=== PATIENT | male | born 1985 | race African-American/Black ===

== ENCOUNTER 2020-08-27 11:41 | Inpatient (IN) | payer OTHER ==
[2020-08-27 16:07] VITALS: BMI 31.7
[2020-08-27] MEDS ORDERED: NICOTINE POLACRILEX 2 MG GUM BUC PRN (16:29)
[2020-08-27] MEDS ORDERED: ACETAMINOPHEN 325 MG TABLET (FP) PO PRN ×2 (16:29)
[2020-08-27] MEDS ORDERED: BISMUTH SUBSALICYLATE 524 MG/30 ML UD PO PRN (16:29)
[2020-08-27] MEDS ORDERED: MAG HYDROX/AL HYDROX/SIMETH 30 ML UNIT-DOSE CUP PO PRN (16:29)
[2020-08-27] MEDS ORDERED: MAGNESIUM CITRATE 300 ML BOTTLE PO PRN (16:29)
[2020-08-27] MEDS ORDERED: ONDANSETRON *ODT* 4 MG TABLET SL PRN (16:29)
[2020-08-27] MEDS ORDERED: chlordiazePOXIDE HCL 25 MG CAPSULE PO PRN (16:29)
[2020-08-27] MEDS ORDERED: MAGNESIUM HYDROX 2400MG/30ML ORAL SUSPENSION 30 ML CUP PO PRN (16:29)
[2020-08-27] MEDS ORDERED: METHOCARBAMOL 500 MG TABLET PO PRN (16:29)
[2020-08-27] MEDS ORDERED: IBUPROFEN 400 MG TABLET (FP) PO PRN (16:29)
[2020-08-27] MEDS ORDERED: MENTHOL/PHENOL 1 EACH UD MM PRN (16:29)
[2020-08-27] MEDS: LORazepam 2 MG TABLET PO SCH ×2 (16:51→23:01)
[2020-08-27] MEDS ORDERED: chlordiazePOXIDE HCL 25 MG CAPSULE PO SCH (17:00)
[2020-08-27] MEDS ORDERED: LORazepam 1 MG TABLET ONE (21:06)
[2020-08-27] MEDS: LORazepam 1 MG TABLET PO PRN (21:09)
[2020-08-27] MEDS: THIAMINE HCL 100 MG TABLET (FP) PO SCH (23:01)
[2020-08-27] MEDS: MELATONIN 5 MG TABLETS PO SCH (23:01)
[2020-08-27] MEDS ORDERED: TUBERCULIN PPD 5 TU/0.1ML VIAL ID ONE (23:25)
[2020-08-28] MEDS: LORazepam 2 MG TABLET PO SCH ×4 (05:56→22:10)
[2020-08-28] MEDS: ELVITEG/COB/EMTRI/TENOF (GENVOYA) TABLET (NF) PO SCH (07:45)
[2020-08-28] MEDS: NICOTINE 7 MG/24 HOURS TOPICAL PATCH TD SCH (10:06)
[2020-08-28] MEDS: PRENATAL VITAMINS W/ FOLIC ACID TABLET (FP) PO SCH (10:06)
[2020-08-28] MEDS: hydrOXYzine PAMOATE 25 MG CAPSULE (FP) PO PRN (10:06)
[2020-08-28 12:39] LABS: HEMATOCRIT 39.8 % (35.4-49); HEMOGLOBIN 13.9 GM/dL (11.7-16.9); MCH 33.1 pg (25.7-33.7); MEAN CELL VOLUME 94.6 fl (80-96); MEAN PLT VOLUME 9.8 fl (7.5-11.1); PLATELET COUNT 238 K/MM3 (134-434); RDW 14.4 % (11.9-15.9); WHITE BLOOD COUNT 7.8 K/mm3 (4.0-10.0)
[2020-08-28 12:42] LABS: ALBUMIN 3.7 g/dl (3.4-5.0)
[2020-08-28 12:43] LABS: BLOOD UREA NITROGEN 9.3 mg/dL (7-18)
[2020-08-28 12:47] LABS: BILIRUBIN,TOTAL 0.8 mg/dL (0.2-1); TOT PROT 7.4 g/dl (6.4-8.2)
[2020-08-28 12:53] LABS: CREATININE 0.7 mg/dL (0.55-1.3)
[2020-08-28] MEDS: QUEtiapine FUMARATE 100 MG TABLET (FP) PO SCH (22:10)
[2020-08-28] MEDS: THIAMINE HCL 100 MG TABLET (FP) PO SCH (22:10)
[2020-08-28] MEDS: DIVALPROEX SODIUM 250 MG TABLET E.C. PO SCH (22:10)
[2020-08-28] MEDS: MELATONIN 5 MG TABLETS PO SCH (22:11)
[2020-08-28] MEDS ORDERED: LOPERAMIDE HCL 2 MG CAPSULE PO ONE (22:14)
[2020-08-29] MEDS ORDERED: chlordiazePOXIDE HCL 25 MG CAPSULE PO SCH (05:00)
[2020-08-29] MEDS: LORazepam 1 MG TABLET PO SCH ×4 (05:55→22:15)
[2020-08-29] MEDS: ELVITEG/COB/EMTRI/TENOF (GENVOYA) TABLET (NF) PO SCH (07:44)
[2020-08-29] MEDS: PRENATAL VITAMINS W/ FOLIC ACID TABLET (FP) PO SCH (10:32)
[2020-08-29] MEDS: NICOTINE 7 MG/24 HOURS TOPICAL PATCH TD SCH (10:33)
[2020-08-29] MEDS ORDERED: DIPHENOXYLATE 2.5/ATROPINE.025 1 COMBO TABLET PO ONE (12:31)
[2020-08-29] MEDS: LORazepam 1 MG TABLET PO PRN (15:05)
[2020-08-29] MEDS: MELATONIN 5 MG TABLETS PO SCH (22:15)
[2020-08-29] MEDS: DIVALPROEX SODIUM 250 MG TABLET E.C. PO SCH (22:15)
[2020-08-29] MEDS: QUEtiapine FUMARATE 100 MG TABLET (FP) PO SCH (22:15)
[2020-08-29] MEDS: THIAMINE HCL 100 MG TABLET (FP) PO SCH (22:15)
[2020-08-30] MEDS ORDERED: LORazepam 0.5 MG TABLET PO PRN
[2020-08-30] MEDS ORDERED: chlordiazePOXIDE HCL 10 MG CAPSULE PO PRN
[2020-08-30] MEDS ORDERED: chlordiazePOXIDE HCL 10 MG CAPSULE PO SCH (05:00)
[2020-08-30] MEDS: LORazepam 0.5 MG TABLET PO SCH ×4 (05:26→22:08)
[2020-08-30] MEDS: ELVITEG/COB/EMTRI/TENOF (GENVOYA) TABLET (NF) PO SCH (07:24)
[2020-08-30] MEDS: PRENATAL VITAMINS W/ FOLIC ACID TABLET (FP) PO SCH (10:22)
[2020-08-30] MEDS: hydrOXYzine PAMOATE 25 MG CAPSULE (FP) PO PRN (10:22)
[2020-08-30] MEDS: NICOTINE 7 MG/24 HOURS TOPICAL PATCH TD SCH (10:22)
[2020-08-30] MEDS: DIVALPROEX SODIUM 250 MG TABLET E.C. PO SCH (22:08)
[2020-08-30] MEDS: THIAMINE HCL 100 MG TABLET (FP) PO SCH (22:08)
[2020-08-30] MEDS: QUEtiapine FUMARATE 100 MG TABLET (FP) PO SCH (22:08)
[2020-08-30] MEDS: MELATONIN 5 MG TABLETS PO SCH (22:47)
[2020-08-31] MEDS ORDERED: LORazepam 0.5 MG TABLET PO ONE (05:00)
[2020-08-31] MEDS ORDERED: chlordiazePOXIDE HCL 10 MG CAPSULE PO SCH (05:00)
[2020-08-31] MEDS: ELVITEG/COB/EMTRI/TENOF (GENVOYA) TABLET (NF) PO SCH (07:04)
[2020-08-31 10:10] LABS: SARS-CoV-2 NAA Not Detected (Not Detected)
[2020-08-31] MEDS: PRENATAL VITAMINS W/ FOLIC ACID TABLET (FP) PO SCH (11:11)
[2020-08-31] MEDS: NICOTINE 7 MG/24 HOURS TOPICAL PATCH TD SCH (11:11)
[2020-08-31] MEDS: hydrOXYzine PAMOATE 25 MG CAPSULE (FP) PO PRN ×3 (13:14→22:11)
[2020-08-31 21:40] VITALS: PULSE 58
[2020-08-31] MEDS: QUEtiapine FUMARATE 100 MG TABLET (FP) PO SCH (22:11)
[2020-08-31] MEDS: DIVALPROEX SODIUM 250 MG TABLET E.C. PO SCH (22:11)
[2020-08-31] MEDS: THIAMINE HCL 100 MG TABLET (FP) PO SCH (22:11)
[2020-08-31] MEDS: MELATONIN 5 MG TABLETS PO SCH (22:51)
[2020-09-01] MEDS ORDERED: chlordiazePOXIDE HCL 10 MG CAPSULE PO ONE (05:00)
[2020-09-01] MEDS ORDERED: LORazepam 0.5 MG TABLET PO ONE (05:00)
[2020-09-01 06:15] VITALS: BP 116/70; TEMP 98.7
[2020-09-01] MEDS: ELVITEG/COB/EMTRI/TENOF (GENVOYA) TABLET (NF) PO SCH (07:08)
== END 2020-09-01 09:30 | disposition home or self-care (01) | DRG 775 ==
LOC: YASAS 11:41 → Y6N 21:42
PROVIDERS: ADMIT Allergy & Immunology; ATTEND Allergy & Immunology
PROC: HZ2ZZZZ Detoxification Services for Substance Abuse Treatment (ICD-10-PCS; principal; 2020-08-27)
DX: F10.230 Alcohol dependence with withdrawal, uncomplicated (principal); F12.20 Cannabis dependence, uncomplicated; F17.210 Nicotine dependence, cigarettes, uncomplicated; F10.24 Alcohol dependence with alcohol-induced mood disorder; F31.81 Bipolar II disorder; F41.9 Anxiety disorder, unspecified; Z21 Asymptomatic human immunodeficiency virus [HIV] infection status; I10 Essential (primary) hypertension; M54.5 Low back pain; G89.29 Other chronic pain; R19.7 Diarrhea, unspecified; Z86.19 Personal history of other infectious and parasitic diseases; Z91.013 Allergy to seafood
CPT/HCPCS: 36415; 80053; 85027; 86593; 86780; C9803; U0003; U0005

== ENCOUNTER 2021-09-04 16:09 | Inpatient (IN) | payer OTHER ==
[2021-09-04 18:49] VITALS: BMI 31.0
[2021-09-04] MEDS ORDERED: IBUPROFEN 400 MG TABLET (FP) PO PRN (19:09)
[2021-09-04] MEDS ORDERED: LOPERAMIDE HCL 2 MG CAPSULE PO PRN (19:09)
[2021-09-04] MEDS ORDERED: BISMUTH SUBSALICYLATE 524 MG/30 ML PO PRN (19:09)
[2021-09-04] MEDS ORDERED: MAGNESIUM HYDROX 2400MG/30ML ORAL SUSPENSION 30 ML CUP PO PRN (19:09)
[2021-09-04] MEDS ORDERED: MAGNESIUM CITRATE 300 ML BOTTLE PO PRN (19:09)
[2021-09-04] MEDS ORDERED: DICYCLOMINE HCL 10 MG CAPSULE PO PRN (19:09)
[2021-09-04] MEDS ORDERED: MELATONIN 5 MG TABLETS PO PRN (19:09)
[2021-09-04] MEDS ORDERED: ONDANSETRON *ODT* 4 MG TABLET SL PRN (19:09)
[2021-09-04] MEDS ORDERED: BENZOCAINE/MENTHOL (CHLORASEPTIC ) LOZENGE MM PRN (19:09)
[2021-09-04] MEDS ORDERED: MAG HYDROX/AL HYDROX/SIMETH 30 ML UNIT-DOSE CUP PO PRN (19:09)
[2021-09-04] MEDS ORDERED: NICOTINE POLACRILEX 2 MG GUM BUC PRN (19:09)
[2021-09-04] MEDS ORDERED: ACETAMINOPHEN 325 MG TABLET (FP) PO PRN ×2 (19:09)
[2021-09-04] MEDS ORDERED: chlordiazePOXIDE HCL 25 MG CAPSULE PO ONE (19:13)
[2021-09-04] MEDS ORDERED: chlordiazePOXIDE HCL 25 MG CAPSULE ONE (19:14)
[2021-09-04] MEDS: hydrOXYzine PAMOATE 25 MG CAPSULE (FP) PO PRN (21:43)
[2021-09-04] MEDS: METHOCARBAMOL 500 MG TABLET PO PRN (21:44)
[2021-09-04] MEDS: THIAMINE HCL 100 MG TABLET (FP) PO SCH (21:45)
[2021-09-04] MEDS: chlordiazePOXIDE HCL 25 MG CAPSULE PO SCH (23:39)
[2021-09-05] MEDS: chlordiazePOXIDE HCL 25 MG CAPSULE PO PRN ×2 (02:42→12:57)
[2021-09-05] MEDS: chlordiazePOXIDE HCL 25 MG CAPSULE PO SCH ×4 (04:52→22:15)
[2021-09-05] MEDS: hydrOXYzine PAMOATE 25 MG CAPSULE (FP) PO PRN ×5 (04:52→22:16)
[2021-09-05] MEDS: PRENATAL VITAMINS W/ FOLIC ACID TABLET (FP) PO SCH (10:10)
[2021-09-05 11:45] LABS: HEMATOCRIT 41.2 % (35.4-49); HEMOGLOBIN 13.9 GM/dL (11.7-16.9); MCH 31.5 pg (25.7-33.7); MCHC 33.7 g/dl (32.0-35.9); MEAN CELL VOLUME 93.4 fl (80-96); MEAN PLT VOLUME 10.2 fl (7.5-11.1); PLATELET COUNT 102 10^3/uL (134-434); RBC 4.42 M/mm3 (4.00-5.60); RDW 15.5 % (11.9-15.9); WHITE BLOOD COUNT 7.3 K/mm3 (4.0-10.0)
[2021-09-05] MEDS: ELVITEG/COB/EMTRI/TENOF (GENVOYA) TABLET (NF) PO SCH (12:02)
[2021-09-05 12:10] LABS: ALBUMIN 3.5 g/dl (3.4-5.0); BLOOD UREA NITROGEN 12.8 mg/dL (7-18)
[2021-09-05 12:11] LABS: CREATININE 0.7 mg/dL (0.55-1.3)
[2021-09-05 12:12] LABS: BILIRUBIN,TOTAL 0.6 mg/dL (0.2-1); TOT PROT 7.3 g/dl (6.4-8.2)
[2021-09-05] MEDS: NICOTINE 10 MG CARTRIDGE (INHALER) IH PRN (19:36)
[2021-09-05] MEDS: DIVALPROEX SODIUM 250 MG TABLET E.C. PO SCH (22:15)
[2021-09-05] MEDS: THIAMINE HCL 100 MG TABLET (FP) PO SCH (22:16)
[2021-09-05] MEDS: QUEtiapine FUMARATE 100 MG TABLET (FP) PO SCH (22:16)
[2021-09-06] MEDS: hydrOXYzine PAMOATE 25 MG CAPSULE (FP) PO PRN ×3 (04:49→18:10)
[2021-09-06] MEDS: chlordiazePOXIDE HCL 25 MG CAPSULE PO SCH ×4 (04:50→22:18)
[2021-09-06] MEDS: METHOCARBAMOL 500 MG TABLET PO PRN (10:12)
[2021-09-06] MEDS: PRENATAL VITAMINS W/ FOLIC ACID TABLET (FP) PO SCH (10:12)
[2021-09-06] MEDS: ELVITEG/COB/EMTRI/TENOF (GENVOYA) TABLET (NF) PO SCH (10:12)
[2021-09-06] MEDS ORDERED: DIPHENOXYLATE 2.5/ATROPINE.025 1 COMBO TABLET PO ONE (10:30)
[2021-09-06 16:08] LABS: SARS-CoV-2 NAA Not Detected (Not Detected)
[2021-09-06] MEDS: NICOTINE 10 MG CARTRIDGE (INHALER) IH PRN (18:13)
[2021-09-06] MEDS: DIVALPROEX SODIUM 250 MG TABLET E.C. PO SCH (22:18)
[2021-09-06] MEDS: THIAMINE HCL 100 MG TABLET (FP) PO SCH (22:18)
[2021-09-06] MEDS: QUEtiapine FUMARATE 100 MG TABLET (FP) PO SCH (22:18)
[2021-09-07] MEDS ORDERED: chlordiazePOXIDE HCL 10 MG CAPSULE PO PRN
[2021-09-07] MEDS: chlordiazePOXIDE HCL 10 MG CAPSULE PO SCH ×4 (05:25→22:38)
[2021-09-07] MEDS: hydrOXYzine PAMOATE 25 MG CAPSULE (FP) PO PRN ×3 (05:26→17:33)
[2021-09-07] MEDS: ELVITEG/COB/EMTRI/TENOF (GENVOYA) TABLET (NF) PO SCH (07:06)
[2021-09-07] MEDS: PRENATAL VITAMINS W/ FOLIC ACID TABLET (FP) PO SCH (10:10)
[2021-09-07] MEDS: METHOCARBAMOL 500 MG TABLET PO PRN ×2 (10:11→22:44)
[2021-09-07] MEDS: QUEtiapine FUMARATE 100 MG TABLET (FP) PO SCH (22:38)
[2021-09-07] MEDS: DIVALPROEX SODIUM 250 MG TABLET E.C. PO SCH (23:06)
[2021-09-07] MEDS: THIAMINE HCL 100 MG TABLET (FP) PO SCH (23:06)
[2021-09-08] MEDS: chlordiazePOXIDE HCL 10 MG CAPSULE PO SCH ×2 (04:46→17:40)
[2021-09-08] MEDS: ELVITEG/COB/EMTRI/TENOF (GENVOYA) TABLET (NF) PO SCH (08:27)
[2021-09-08] MEDS: PRENATAL VITAMINS W/ FOLIC ACID TABLET (FP) PO SCH (10:10)
[2021-09-08] MEDS: METHOCARBAMOL 500 MG TABLET PO PRN (10:10)
[2021-09-08] MEDS: THIAMINE HCL 100 MG TABLET (FP) PO SCH (22:21)
[2021-09-08] MEDS: DIVALPROEX SODIUM 250 MG TABLET E.C. PO SCH (22:21)
[2021-09-08] MEDS: QUEtiapine FUMARATE 100 MG TABLET (FP) PO SCH (22:21)
[2021-09-09] MEDS ORDERED: chlordiazePOXIDE HCL 10 MG CAPSULE PO ONE (05:00)
[2021-09-09] MEDS: METHOCARBAMOL 500 MG TABLET PO PRN (05:25)
[2021-09-09 09:10] VITALS: BP 138/96; PULSE 76; TEMP 97.8
[2021-09-09] MEDS: PRENATAL VITAMINS W/ FOLIC ACID TABLET (FP) PO SCH (10:32)
[2021-09-09] MEDS: ELVITEG/COB/EMTRI/TENOF (GENVOYA) TABLET (NF) PO SCH (10:33)
== END 2021-09-09 11:20 | disposition home or self-care (01) | DRG 775 ==
LOC: YASAS 16:09 → Y6N 19:06
PROVIDERS: ADMIT Allergy & Immunology; ATTEND Surgery
PROC: HZ2ZZZZ Detoxification Services for Substance Abuse Treatment (ICD-10-PCS; principal; 2021-09-04)
DX: F10.230 Alcohol dependence with withdrawal, uncomplicated (principal); F12.10 Cannabis abuse, uncomplicated; F17.210 Nicotine dependence, cigarettes, uncomplicated; F31.81 Bipolar II disorder; F39 Unspecified mood [affective] disorder; F41.8 Other specified anxiety disorders; Z21 Asymptomatic human immunodeficiency virus [HIV] infection status; I10 Essential (primary) hypertension; G47.00 Insomnia, unspecified; M54.50 Low back pain, unspecified; G89.29 Other chronic pain; Z86.19 Personal history of other infectious and parasitic diseases
CPT/HCPCS: 36415; 80053; 85027; 86593; 86780; C9803-CS; U0003; U0005